=== PATIENT | female | born 1990 | race Caucasian/White ===

== ENCOUNTER 2017-10-23 13:05 | Emergency (ER) | payer SELFPAY ==
[~2017-10-23] VITALS: Ht 160 cm; Wt 56.4 kg
[~2017-10-23 13:05] MED LIST: Z.0.BCPILL PO
[2017-10-23 13:06] VITALS: BP 152/87; PULSE 92; RESP 18; TEMP 99; O2SAT 97
[2017-10-23] MEDS ORDERED: BIRTH CONTROL PILLS (13:18)
--- NOTE | 2017-10-23 13:52 | PD ---
HPI Chief Complaint: Cold / Flu Symptoms Time Seen by Provider: 13:39 Travel History International Travel<30 days: No Contact w/Intl Traveler<30days: No Traveled to known affect area: No History of Present Illness HPI 26-year-old female presents to the emergency room for evaluation of cough, congestion, sore throat, and body aches for the past several days. Patient states she has had to call at work 3 days and needs a work note to return. She has been taking multiple [id number] cough and cold medications without relief in symptoms. She has also been taking Tylenol and drinking plenty of fluids. States she has been especially tired the past several days. Cough is severe but nonproductive. No objective fevers. Denies chronic medical conditions or daily medications. Reports childhood asthma. PFSH Past Medical History Medical History: Denies Significant Hx Hx Anticoagulant Therapy: No Cardiovascular Problems: No Chemotherapy: No Cerebrovascular Accident: No Diabetes: No Diminished Hearing: No Respiratory: No Immunizations Current: Yes Tetanus Vaccination: Unknown Influenza Vaccination: No ?: Not Past Surgical History Surgical History: No Previous Surgery Hysterectomy: No Social History Alcohol Use: Yes (rare) Tobacco Use: Yes (6 cigs per day.) Substance Use: No Allergies-Medications (Allergen,Severity, Reaction): Coded Allergies: latex (Unverified Allergy, Intermediate, Rash, 10/23/17) Reported Meds & Prescriptions Reported Meds & Active Scripts Active Reported [ Control Pills] Review of Systems Except as stated in HPI: all other systems reviewed are Neg Physical Exam Narrative GENERAL: Well-nourished, well-developed female in no acute distress. Afebrile. Ambulatory. SKIN: Focused skin assessment warm/dry. HEAD: Normocephalic. EYES: No scleral icterus. No injection or drainage. ENT: Mucosa pink and moist. No erythema or exudates. No uvular edema. No uvular , palatal, or tonsillar deviation. Airway patent. Nasal turbinates appear normal without nasal blood, purulent drainage or septal hematoma. NECK: Supple, trachea midline. No JVD or lymphadenopathy. CARDIOVASCULAR: Regular rate and rhythm without murmurs, gallops, or rubs. RESPIRATORY: Breath sounds equal bilaterally. No accessory muscle use. Bilateral inspiratory rhonchi. Data Data Last Documented VS Vital Signs Date Time Temp Pulse Resp B/P (MAP) Pulse Ox O2 Delivery O2 Flow Rate FiO2 10/23/17 13:06 99.0 92 18 152/87 (108) 97 Room Air Orders Orders Chest, Pa & Lat (10/23/17 ) MDM Medical Decision Making Medical Screen Exam Complete: Yes Emergency Medical Condition: Yes Medical Record Reviewed: Yes Differential Diagnosis URI, pneumonia, bronchitis, flu Narrative Course 26-year-old female presents to the emergency room for evaluation of cough and cold symptoms for the past 4 days. States she has had to call off of work and needs a work note. She has been taking [id number] cough and cold medications without relief in symptoms. Patient is afebrile, well-appearing in the emergency room. There are bilateral rhonchi on exam. X-ray is negative. This is URI. Patient discharged with instructions to follow up with PCP or return for worsening symptoms. She understands and agrees to plan. Diagnosis Primary Impression: Upper respiratory infection Qualified Codes: J00 - Acute nasopharyngitis [common cold] Referrals: Primary Care Physician Departure Forms: Tests/Procedures, Work Release Enter return to work date: Oct 25, 2017 Additional Instructions: Mely-uic-utgxxoi cough and cold medication as needed for symptoms. Follow-up with a primary care physician. Return to the emergency room for worsening symptoms. Disposition: 01 DISCHARGE HOME Condition: Stable Heaven Rivera Oct 23, 2017 13:52
--- NOTE | 2017-10-23 14:23 | RADRPT ---
EXAM DATE/TIME: 10/23/2017 14:09 [facility] COMPARISON: No previous studies available for comparison. INDICATIONS : Cough, body aches and fever MEDICAL HISTORY : None. SURGICAL HISTORY : None. ENCOUNTER: Initial ACUITY: 4 - 6 days PAIN SCORE: 0/10 LOCATION: Bilateral chest FINDINGS: PA and lateral views of the chest demonstrate the lungs to be symmetrically aerated without evidence of mass, infiltrate or effusion. The cardiomediastinal contours are unremarkable. Osseous structure s are intact. CONCLUSION: No acute disease. Gaudencio Herrera MD on October 23, 2017 at 14:20 Board Certified Radiologist. This report was verified electronically.
== END 2017-10-23 14:45 | disposition home or self-care (01) ==
LOC: NEPK 13:05
DX: J00 Acute nasopharyngitis [common cold] (principal); J45.909 Unspecified asthma, uncomplicated; F17.210 Nicotine dependence, cigarettes, uncomplicated
CPT/HCPCS: 71046; 99283